=== PATIENT | female | born 1980 | race Caucasian/White ===

== ENCOUNTER 2016-07-10 19:03 | Emergency (ER) | payer BC ==
[~2016-07-10] VITALS: Ht 162.6 cm; Wt 96.5 kg
[~2016-07-10 19:03] MED LIST: CYCL-319 PO; HYDR-3498 PO; IBUP-1542 PO; NAPR-260 PO; NO OTHER MEDS; VITAMIN B-12
[2016-07-10 19:13] VITALS: Ht 162.6 cm; Wt 96.5 kg
[2016-07-10] MEDS ORDERED: LORA-441 PO (20:30)
[2016-07-10] MEDS ORDERED: ESCI10TA PO (20:30)
[2016-07-10] MEDS ORDERED: LORAZEPAM 1 MG TAB PO ONE (20:30)
--- NOTE | 2016-07-10 21:25 | ERD ---
ER Documentation Chief Complaint Date/Time DATE: 07/10/16 TIME: 21:19 Chief Complaint anxiety, "family problems" HPI This patient is a 35-year-old female with history of anxiety and depression presenting to the emergency department for worsening anxiety ongoing for the past 2 weeks. The patient is taken Lexapro and Ativan in the past for her symptoms but she has not taken them for approximately 4 years. She states she has had flashbacks from traumatic events in her life but she would not elaborate on what these events were. Additionally the patient reports loss of appetite, full body muscle aches, and palpitations. The patient denies chest pain, shortness of breath, nausea, vomiting, diarrhea, urinary symptoms, dizziness, headaches, or other symptoms at this time. The patient adamantly denies any homicidal or suicidal ideology. ROS All systems reviewed and are negative except as per history of present illness. Medications Home Meds Active Scripts Escitalopram Oxalate* (Lexapro*) 10 Mg Tablet, 10 MG PO DAILY, #30 TAB Prov:LANCE FORRESTER PA-C 07/10/16 Lorazepam* (Ativan*) 0.5 Mg Tablet, 0.5 MG PO Q8, #10 TAB Prov:LANCE FORRESTER PA-C 07/10/16 Ibuprofen* (Motrin*) 600 Mg Tab, 600 MG PO Q6H Y for PAIN AND OR ELEVATED TEMP, #30 TAB Prov:DEYSI WRIGHT NP 10/14/15 Cyclobenzaprine Hcl* (Cyclobenzaprine Hcl*) 10 Mg Tablet, 10 MG PO TID, #15 TAB Prov:DEYSI WRIGHT NP 10/14/15 Hydrocodone Bit-Acetaminophen* (Wyanet*) 5-325 Mg Tab, 1 TAB PO Q6 Y for PAIN, # 20 TAB Prov:DEYSI WRIGHT NP 10/14/15 Naproxen* (Naprosyn*) 500 Mg Tablet, 500 MG PO BID, #30 TAB Prov:JORDY DE LEON PA-C 09/19/14 Reported Medications [No Other Meds] No Conflict Check 07/20/10 [Vitamin B-12] No Conflict Check 07/04/10 Allergies Allergies: Coded Allergies: No Known Allergies (Verified Allergy, Mild, 12/01/10) PMhx/Soc Medical and Surgical Hx: pt denies Medical Hx, pt denies Surgical Hx History of Surgery: No Anesthesia Reaction: No Hx Neurological Disorder: No Hx Respiratory Disorders: No Hx Cardiac Disorders: No Hx Psychiatric Problems: No Hx Miscellaneous Medical Probl: No Hx Alcohol Use: No Hx Substance Use: No Hx Tobacco Use: No Smoking Status: Never smoker FmHx Noncontributory for chief complaint Physical Exam Vitals Vital Signs Date Time Temp Pulse Resp B/P Pulse Ox O2 Delivery O2 Flow Rate FiO2 07/10/16 19:13 97.8 81 20 141/73 99 Physical Exam Const: The patient is resting comfortably in no acute distress. Head: Atraumatic Eyes: Normal Conjunctiva ENT: Normal External Ears, Nose and Mouth. Neck: Full range of motion..~ No meningismus. Resp: Clear to auscultation bilaterally Cardio: Regular rate and rhythm, no murmurs Abd: Soft, non tender, non distended. Normal bowel sounds Skin: No petechiae or rashes Back: No midline or flank tenderness Ext: No cyanosis, or edema Neur: Awake and alert Psych: Flat affect. Results 24 hrs Current Medications Medications (Trade) Dose Ordered Sig/Rakesh Route PRN Reason Start Time Stop Time Status Last Admin Dose Admin Lorazepam (Ativan) 1 mg ONCE ONCE PO 07/10/16 20:30 07/10/16 20:31 DC 07/10/16 20:44 Procedures/MDM 35-year-old female presents secondary to complaints of anxiety and depression worsening over the past 2 weeks. The patient does have history of anxiety and depression. The patient's vital signs are within normal limits. On physical examination the patient appears to be in no acute distress but she does have a flat affect. The patient adamantly denies any suicidal or homicidal ideation at this time. The patient took Lexapro in the past I feel it is reasonable to start this medication again as she states her depressive symptoms have been worsening lately. The patient did visit her primary care physician who recommended yoga but she has been making multiple times without medication and states she has failed to control her anxiety and depressive symptoms. The patient was treated in the department with p.o. Ativan and was feeling improved. The patient will be discharged home with a prescription for Ativan to be taken only as needed for acute anxiety. The patient is to take Lexapro exactly as prescribed and how she has taken it in the past. The patient was advised if she has any new or worsening symptoms to return to the department immediately. The patient was advised if she has any homicidal or suicidal ideation she should call 9 on right away or go to her nearest emergency department. The patient understands information. The patient was advised to follow-up with psychiatry if she needs to. The patient was advised to see her primary care physician as soon as possible. The patient was hemodynamically stable prior to discharge and her questions and concerns were addressed. EKG: Interpreted by ED physician Rate/Rhythm: Normal sinus rhythm with a rate of 69 bpm. Normal axis. QRS, ST, T-waves: No changes consistent w/ acute ischemia Impression: No evidence of ischemia or arrhythmia Departure Diagnosis: Primary Impression: Anxiety reaction Additional Impression: Depressive episode Condition: Fair Patient Instructions: Your Body's Response to Anxiety, Anxiety Reaction Referrals: [facility] YOU HAVE RECEIVED A MEDICAL SCREENING EXAM AND THE RESULTS INDICATE THAT YOU DO NOT HAVE A CONDITION THAT REQUIRES URGENT TREATMENT IN THE EMERGENCY DEPARTMENT. FURTHER EVALUATION AND TREATMENT OF YOUR CONDITION CAN WAIT UNTIL YOU ARE SEEN IN YOUR DOCTORS OFFICE WITHIN THE NEXT 1-2 DAYS. IT IS YOUR RESPONSIBILITY TO MAKE AN APPOINTMENT FOR FOLOW-UP CARE. IF YOU HAVE A PRIMARY DOCTOR --you should call your primary doctor and schedule an appointment IF YOU DO NOT HAVE A PRIMARY DOCTOR YOU CAN CALL OUR PHYSICIAN REFERRAL HOTLINE AT IF YOU CAN NOT AFFORD TO SEE A PHYSICIAN YOU CAN CHOSE FROM THE FOLLOWING [facility] [address] [facility]. [facility] [address]. [facility] [address] [facility] [address] [facility]. [facility] [address] [facility]. [facility]. [address] Additional Instructions: Please follow up with your PCP as soon as possible. If you have any increasing anxiety symptoms or thoughts of hurting yourself or anyone else return to the emergency department immediately or call 911. Take all medication exactly as prescribed. Follow-up with a psychiatrist as soon as possible. LANCE FORRESTER PA-C Jul 10, 2016 21:25
== END 2016-07-10 20:47 | disposition home or self-care (01) ==
LOC: FTE 19:03
DX: F41.1 Generalized anxiety disorder (principal); F32.9 Major depressive disorder, single episode, unspecified; R00.2 Palpitations
CPT/HCPCS: 93005

== ENCOUNTER 2016-07-24 17:17 | Emergency (ER) | payer BC ==
[~2016-07-24] VITALS: Ht 162.6 cm; Wt 96.5 kg
[~2016-07-24 17:17] MED LIST changes: +ESCI10TA PO; +LORA-441 PO
[2016-07-24 17:20] VITALS: Ht 162.6 cm; Wt 96.5 kg
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
== END 2016-07-24 18:07 | disposition home or self-care (01) ==
LOC: FTE 17:17
DX: F41.9 Anxiety disorder, unspecified (principal)
CPT/HCPCS: 99282

== ENCOUNTER 2016-09-30 09:21 | Emergency (ER) | payer BC ==
[~2016-09-30] VITALS: Ht 157.5 cm; Wt 90.0 kg
[2016-09-30 09:25] VITALS: Ht 157.5 cm; Wt 90.0 kg
--- NOTE | 2016-09-30 11:15 | ERD ---
ER Documentation Chief Complaint Date/Time DATE: 09/30/16 TIME: 11:08 Chief Complaint feels dizzy,tired HPI Patient is a 35-year-old female with anxiety who presents saying that she has a headache. She says "I think I have PTSD". She feels a headache and feels like "a band wound around my head." She feels lightheaded and has decreased energy. She feels fatigued. She said the symptoms started on Tuesday. She denies any treatment as of yet. Upon review of old medical records the patient has multiple visits to the ER for various complaints including headache. Review of the emergency department information exchange shows visits to 3 separate emergency departments. Her primary doctor is Dr. Raymundo. She has not called him as of yet. ROS All systems reviewed and are negative except as per history of present illness. Medications Home Meds Active Scripts Escitalopram Oxalate* (Lexapro*) 10 Mg Tablet, 10 MG PO DAILY, #30 TAB Prov:LANCE FORRESTER PA-C 07/10/16 Lorazepam* (Ativan*) 0.5 Mg Tablet, 0.5 MG PO Q8, #10 TAB Prov:LANCE FORRETSER PA-C 07/10/16 Ibuprofen* (Motrin*) 600 Mg Tab, 600 MG PO Q6H Y for PAIN AND OR ELEVATED TEMP, #30 TAB Prov:DEYSI WRIGHT NP 10/14/15 Cyclobenzaprine Hcl* (Cyclobenzaprine Hcl*) 10 Mg Tablet, 10 MG PO TID, #15 TAB Prov:DEYSI WRIGHT NP 10/14/15 Hydrocodone Bit-Acetaminophen* ([place]berg*) 5-325 Mg Tab, 1 TAB PO Q6 Y for PAIN, # 20 TAB Prov:DEYSI WRIGHT NP 10/14/15 Naproxen* (Naprosyn*) 500 Mg Tablet, 500 MG PO BID, #30 TAB Prov:JORDY DE LEON PA-C 09/19/14 Reported Medications [No Other Meds] No Conflict Check 07/20/10 [Vitamin B-12] No Conflict Check 07/04/10 Allergies Allergies: Coded Allergies: No Known Allergies (Verified Allergy, Mild, 4/15/17) PMhx/Soc Medical and Surgical Hx: pt denies Medical Hx, pt denies Surgical Hx History of Surgery: No Anesthesia Reaction: No Hx Neurological Disorder: No Hx Respiratory Disorders: No Hx Cardiac Disorders: No Hx Psychiatric Problems: Yes (ANXIETY , PTSD ) Hx Miscellaneous Medical Probl: No Hx Alcohol Use: No Hx Substance Use: No Hx Tobacco Use: No FmHx Family History: No diabetes Physical Exam Vitals Vital Signs Date Time Temp Pulse Resp B/P Pulse Ox O2 Delivery O2 Flow Rate FiO2 09/30/16 09:25 98.1 89 18 135/89 99 Physical Exam Const: No acute distress Head: Atraumatic Eyes: Normal Conjunctiva ENT: Normal External Ears, Nose and Mouth. Neck: Full range of motion..~ No meningismus. Resp: Clear to auscultation bilaterally Cardio: Regular rate and rhythm, no murmurs Abd: Soft, non tender, non distended. Normal bowel sounds Skin: No petechiae or rashes Back: No midline or flank tenderness Ext: No cyanosis, or edema Neur: Awake and alert, cranial nerves II through XII are intact, no slurred speech, no weakness of the arms or legs bilaterally Psych: Normal Mood and Affect Procedures/MDM Patient is a 35-year-old female who presents with anxiety. She has a headache but at this point I doubt intracranial mass, hemorrhage, or stroke. I doubt meningitis. She wants laboratory studies checked but she has normal vital signs and is otherwise well-appearing and I do not think there is any indication to check laboratory studies at this time. I doubt anemia or serious electrolyte abnormality. She can return for any worsening symptoms. The patient will be discharged home and can follow-up with Dr. Raymundo within 1 week. Departure Diagnosis: Primary Impression: Headache Headache type: unspecified Headache chronicity pattern: acute headache Intractability: not intractable Qualified Code: R51 - Acute nonintractable headache, unspecified headache type Additional Impression: Dizziness Condition: Fair Patient Instructions: Self-Care for Headaches, Dizziness, Unk Cause Additional Instructions: Call your primary care doctor TOMORROW for an appointment during the next 1-2 days.See the doctor sooner or return here if your condition worsens before your appointment time. MILENA DENT MD Sep 30, 2016 11:15
== END 2016-09-30 10:25 | disposition home or self-care (01) ==
LOC: FTE 09:21
DX: R51 Headache (principal)
CPT/HCPCS: 99282

== ENCOUNTER 2017-09-07 20:29 | Emergency (ER) | END 2017-09-07 23:11 | disposition home or self-care (01) ==

== ENCOUNTER 2018-08-03 07:45 | Emergency (ER) | payer BC ==
[~2018-08-03] VITALS: Ht 160 cm; Wt 103.1 kg
[~2018-08-03 07:45] MED LIST changes: -CYCL-319 PO; +CYCL10TA7 PO; -NAPR-260 PO; +NAPR-985 PO
[2018-08-03 07:51] VITALS: BP 124/69; PULSE 100; RESP 18; Ht 160 cm; Wt 103.1 kg
--- NOTE | 2018-08-03 10:19 | ERD ---
ER Documentation Chief Complaint Chief Complaint HEADACHE X 1 WEEK.ALREADY SEEN BY PMD FOR SAME COMPLAINTS. HPI 37-year-old female patient with past medical history of anxiety presents the ED complaining of a headache that started 2 weeks ago. Patient reports that it is diffusely on the top of her head. Describes the pain as aching and rates it a 6 out of 10. She followed up with her primary care physician she was told that it was anxiety. Denies any head or neck injuries. Denies any fever, chills, nausea, vomiting, photosensitivity, photophobia. Patient is eating well, tolerating oral intake. She reports that she is also concerned about dementia. ROS All systems reviewed and are negative except as per history of present illness. Medications Home Meds Active Scripts Ibuprofen* (Motrin*) 600 Mg Tab, 600 MG PO Q6, #30 TAB Prov:MICHELLE HUMMEL PA-C 09/07/17 Escitalopram Oxalate* (Lexapro*) 10 Mg Tablet, 10 MG PO DAILY, #30 TAB Prov:LANCE FORRESTER PA-C 07/10/16 Lorazepam* (Ativan*) 0.5 Mg Tablet, 0.5 MG PO Q8, #10 TAB Prov:LANCE FORRESTER PA-C 07/10/16 Ibuprofen* (Motrin*) 600 Mg Tab, 600 MG PO Q6H PRN for PAIN AND OR ELEVATED TEMP, #30 TAB Prov:DEYSI WRIGHT NP 10/14/15 Cyclobenzaprine Hcl* (Cyclobenzaprine Hcl*) 10 Mg Tablet, 10 MG PO TID, #15 TAB Prov:DEYSI WRIGHT NP 10/14/15 Hydrocodone Bit-Acetaminophen* ([place]*) 5-325 Mg Tab, 1 TAB PO Q6 PRN for PAIN, #20 TAB Prov:DEYSI WRIGHT NP 10/14/15 Naproxen* (Naprosyn*) 500 Mg Tablet, 500 MG PO BID, #30 TAB Prov:JORDY DE LEON PA-C 09/19/14 Reported Medications [No Other Meds] No Conflict Check 07/20/10 [Vitamin B-12] No Conflict Check 07/04/10 Allergies Allergies: Coded Allergies: No Known Allergies (Verified Allergy, Mild, 08/03/18) PMhx/Soc Medical and Surgical Hx: pt denies Medical Hx, pt denies Surgical Hx History of Surgery: No Anesthesia Reaction: No Hx Neurological Disorder: No Hx Respiratory Disorders: No Hx Cardiac Disorders: No Hx Psychiatric Problems: Yes (ANXIETY , PTSD ) Hx Miscellaneous Medical Probl: No Hx Alcohol Use: No Hx Substance Use: No Hx Tobacco Use: No Smoking Status: Never smoker FmHx Family History: No diabetes, No coronary disease Physical Exam Vitals Vital Signs Date Temp Pulse Resp B/P (MAP) Pulse Ox O2 O2 Flow FiO2 Time Delivery Rate 08/03/18 98.3 100 18 124/69 98 07:51 (87) Physical Exam Const: Itn-[id number], well-nourished. In no acute distress. Head: Atraumatic, normocephalic. No hematoma. No bucio sign. Eyes: Normal Conjunctiva without injection. No purulent discharge. PERRLA. EOMI ENT: Normal external ear. Ear canal without erythema. Tympanic membrane pearly underwood without effusion or bulging. No hemotympanum. Nasal canal clear with normal turbinates. Moist oropharynx without tonsillar exudates. Non-erythematous pharynx. Uvula midline. No drooling. No trismus. Neck: No cervical midline tenderness. Full range of motion. No meningismus. No cervical lymphadenopathy. No JVD. Resp: Clear to auscultation bilaterally. No wheezing, rhonchi, rales, or crackles. No accessory muscle use. No retractions. Cardio: Regular rate and rhythm. No murmurs, rubs or gallops. Abd: Soft, non tender, non distended. Normal bowel sounds. No palpable masses. No rebound tenderness. No guarding. Negative McBurney's Point. Negative Albarran's Sign. Skin: Normal skin turgor. No petechiae or rashes Back: No midline tenderness. No CVA tenderness. Ext: No cyanosis, or edema. Distal pulses intact bilaterally. Neur: Awake and alert. Normal gait. Normal coordination. Cranial Nerves II- VII intact. Normal finger to nose. Muscle strength 5/5. Sensation intact. Psych: Normal Mood and Affect Results 24 hrs Laboratory Tests Test 08/03/18 09:06 POC Beta HCG, Qualitative NEGATIVE Procedures/MDM 37-year-old female patient with no significant past medical history presents ED complaining of a headache that was 2 weeks ago, gradually worsened 1 week ago. Patient is afebrile and nontoxic-appearing. Patient request for a CT of the brain without contrast. Patient is neurologically intact. IMPRESSION: 1. No acute intracranial hemorrhage, transcortical infarction or mass effect. Patient's headache is likely consistent with tension headache versus anxiety related. Low suspicion for intracranial bleed, subarachnoid hemorrhage, dissection, meningitis, TIA, stroke, subdural hematoma, epidural hematoma or other emergent conditions. Low suspicion for acute myocardial infarction, pneumothorax, pericarditis, myocarditis, endocarditis, pneumonia, cardiac tamponade, pulmonary embolism, pleural effusion, AAA, aortic dissection, Boerhaave's syndrome, cardiac dysrhythmias,meningitis, intracranial bleed, seizure, stroke, TIA or other emergent conditions. Diagnosis: Headache Follow up with primary care physician in 1-2 days. Instructed patient to return to the ED sooner for any worsening symptoms. Patient's questions were answered. Patient is hemodynamically stable. Patient understood and agreed with discharge plan. Patient discharged stable. Disclaimer: Inadvertent spelling and grammatical errors are likely due to EHR/dictation software use and do not reflect on the overall quality of patient care. Also, please note that the electronic time recorded on this note does not necessarily reflect the actual time of the patient encounter. Departure Diagnosis: Primary Impression: Headache Headache type: unspecified Headache chronicity pattern: unspecified pattern Intractability: not intractable Qualified Codes: R51 - Headache Condition: Stable Patient Instructions: Anxiety Reaction, Headache, Unspecified Referrals: UVALDO LI MD (PCP) [facility] YOU HAVE RECEIVED A MEDICAL SCREENING EXAM AND THE RESULTS INDICATE THAT YOU DO NOT HAVE A CONDITION THAT REQUIRES URGENT TREATMENT IN THE EMERGENCY DEPARTMENT. FURTHER EVALUATION AND TREATMENT OF YOUR CONDITION CAN WAIT UNTIL YOU ARE SEEN IN YOUR DOCTORS OFFICE WITHIN THE NEXT 1-2 DAYS. IT IS YOUR RESPONSIBILITY TO MAKE AN APPOINTMENT FOR FOLOW-UP CARE. IF YOU HAVE A PRIMARY DOCTOR --you should call your primary doctor and schedule an appointment IF YOU DO NOT HAVE A PRIMARY DOCTOR YOU CAN CALL OUR PHYSICIAN REFERRAL HOTLINE AT IF YOU CAN NOT AFFORD TO SEE A PHYSICIAN YOU CAN CHOSE FROM THE FOLLOWING [facility] [address] [facility]. [facility] [address] [facility] [address] [facility] [address] [facility] [address] [facility]. [facility] [address] [facility]. [facility] YOU HAVE RECEIVED A MEDICAL SCREENING EXAM AND THE RESULTS INDICATE THAT YOU DO NOT HAVE A CONDITION THAT REQUIRES URGENT TREATMENT IN THE EMERGENCY DEPARTMENT. FURTHER EVALUATION AND TREATMENT OF YOUR CONDITION CAN WAIT UNTIL YOU ARE SEEN IN YOUR DOCTORS OFFICE WITHIN THE NEXT 1-2 DAYS. IT IS YOUR RESPONSIBILITY TO MAKE AN APPOINTMENT FOR FOLOW-UP CARE. IF YOU HAVE A PRIMARY DOCTOR --you should call your primary doctor and schedule and appointment IF YOU DO NOT HAVE A PRIMARY DOCTOR YOU CAN CALL OUR PHYSICIAN REFERRAL HOTLINE AT . IF YOU CAN NOT AFFORD TO SEE A PHYSICIAN YOU CAN CHOSE FROM THE FOLLOWING [facility] IN[facility]UTIONS: [facility] [address] [place] [address] [facility] [address] [place] [address] [facility] [address] [place] [address] [facility] Additional Instructions: Call your primary care doctor TOMORROW for an appointment during the next 2-3 days.See the doctor sooner or return here if your condition worsens before your appointment time. NOE MNIER PA-C Aug 03, 2018 10:19
== END 2018-08-03 09:46 | disposition home or self-care (01) ==
LOC: FTE 07:45
DX: R51 Headache (principal)
CPT/HCPCS: 70450; 81025

== ENCOUNTER 2019-02-06 04:31 | Emergency (ER) | payer BC ==
[~2019-02-06] VITALS: Ht 160 cm; Wt 104.6 kg
[~2019-02-06 04:31] MED LIST changes: +FAMO-96 PO
[2019-02-06 04:36] VITALS: BP 126/75; PULSE 78; RESP 20; Ht 160 cm; Wt 104.6 kg
== END 2019-02-06 06:56 | disposition home or self-care (01) ==
LOC: FTE 04:31
DX: R10.13 Epigastric pain (principal)
CPT/HCPCS: 36415; 74176; 80053; 81003; 81025; 83690; 85025; 85610; 85730